=== PATIENT | female | born 1990 | race Caucasian/White ===

== ENCOUNTER 2020-04-21 14:36 | Emergency (ER) | payer OTHER ==
[~2020-04-21] VITALS: Ht 170.2 cm; Wt 110.2 kg
[2020-04-21] MEDS ORDERED: MEDROLPACK PO (16:15)
[2020-04-21] MEDS ORDERED: ORPHENADRINE C100 MG PO (16:15)
== END 2020-04-21 17:24 | disposition home or self-care (01) ==
LOC: ER 14:36
DX: M54.5 Low back pain (principal)